=== PATIENT | male | born 1985 | race Caucasian/White ===

== ENCOUNTER 2023-03-27 08:11 | Inpatient (IN) ==
[2023-03-27] MEDS ORDERED: Magnesium Hydroxide LIQ 30 ML UDC PO PRN (10:01)
[2023-03-27] MEDS ORDERED: LORazepam 2 mg VIAL 1 ml IV PUSH PRN ×2 (10:01)
[2023-03-27] MEDS ORDERED: Ondansetron 4 mg VIAL 2 MG/ML 2 ml VIAL IV PRN (10:01)
[2023-03-27] MEDS: CMCS:Lamotrigine XR 200 mg TAB (NF) PO SCH (20:14)
[2023-03-28] MEDS: Calcium Polycarbophil 625mg TB PO SCH (09:18)
[2023-03-28] MEDS: CMCS:Lamotrigine XR 200 mg TAB (NF) PO SCH ×2 (09:23→20:11)
[2023-03-29] MEDS: Calcium Polycarbophil 625mg TB PO SCH (09:00)
[2023-03-29] MEDS: CMCS:Lamotrigine XR 200 mg TAB (NF) PO SCH ×2 (09:01→20:03)
[2023-03-29] MEDS ORDERED: Lorazepam PYXIS KEY PRN (19:40)
[2023-03-30] MEDS: CMCS:Zonisamide 100 mg CAP (NF) PO SCH (10:17)
[2023-03-30] MEDS: Calcium Polycarbophil 625mg TB PO SCH (10:18)
[2023-03-30] MEDS: CMCS:Lamotrigine XR 200 mg TAB (NF) PO SCH ×2 (10:18→20:54)
[2023-03-31] MEDS: CMCS:Lamotrigine XR 200 mg TAB (NF) PO SCH (08:53)
[2023-03-31] MEDS: Calcium Polycarbophil 625mg TB PO SCH (08:54)
[2023-03-31] MEDS: CMCS:Zonisamide 100 mg CAP (NF) PO SCH (08:55)
[2023-03-31 11:30] VITALS: BP 103/68
== END 2023-03-31 11:34 | disposition home or self-care (01) | DRG 53 ==
LOC: MEDTELE 08:11 → SUATTDRO 08:11
PROVIDERS: ADMIT Psychiatry & Neurology Neurology; ATTEND Student in an Organized Health Care Education/Training Program